=== PATIENT | male | born 1995 | race African-American/Black ===

== ENCOUNTER 2018-08-11 17:54 | Emergency (ER) | payer OTHER ==
[~2018-08-11] VITALS: Ht 182.9 cm; Wt 68.2 kg
[2018-08-11] MEDS ORDERED: NS 1,000 ML IV ONE (18:30)
[2018-08-11] MEDS ORDERED: KETOROLAC 30 MG/ML VIAL (J1885) IV ONE (18:30)
[2018-08-11] MEDS ORDERED: IPRATROPIUM 0.5MG/ALBUTEROL 2.5MG INH SOL UD 3ML (DUONEB)(J7620) NEB PRN (18:30)
[2018-08-11 19:01] LABS: INFLUENZA A AMPLIFICATION NEGATIVE (NEGATIVE); INFLUENZA B AMPLIFICATION NEGATIVE (NEGATIVE)
--- NOTE | 2018-08-11 19:05 | REP ---
Chest x-ray: Two views. History: Shortness of breath. Chest pain. . Comparison study: No comparison study . Findings: The lungs are well inflated and free of infiltrate. The pleural angles are sharp. The heart size is normal. Pulmonary vasculature is not increased. No significant bony abnormality is seen. Impression: Negative chest x-ray. Electronically Signed by Harvey Small MD 08/11/2018 06:57 P
[2018-08-11 19:14] LABS: BASO % 0.4 % (0.0-1.0); EOS # 0.4 10^3/uL (0.0-0.50); EOS % 4.3 % (0.0-3.0); HEMATOCRIT 48.5 % (42.0-52.0); HEMOGLOBIN 16.5 g/dl (13.5-17.5); LYMPH # 2.6 10^3/uL (1.5-6.5); LYMPH % 29.1 % (24.0-44.0); MEAN CORPUSCULAR HEMOGLOBIN 29.4 pg (27.0-33.0); MEAN CORPUSCULAR VOLUME 86.3 fl (80.0-96.0); MONO # 0.7 10^3/uL (0.0-0.8); MONO % 7.5 % (0.0-5.0); NEUTROPHILS # 5.2 10^3/uL (1.8-7.7); NEUTROPHILS % 58.4 % (36.0-66.0); PLATELET COUNT, AUTOMATED 236 10^3/uL (150-450); RED BLOOD COUNT 5.62 10^6/uL (4.30-6.10)
[2018-08-11 19:51] LABS: BLOOD UREA NITROGEN 9 MG/DL (7-18); CALCIUM LEVEL 5.8 MG/DL (8.5-10.1); CARBON DIOXIDE LEVEL 20 MEQ/L (21-32); CHLORIDE LEVEL 119 MEQ/L (98-107); CREATININE FOR GFR 0.57 MG/DL (0.70-1.30); GLOMERULAR FILTRATION RATE > 60.0 (>60); GLUCOSE, FASTING 66 MG/DL (70-100); SODIUM LEVEL 146 MEQ/L (136-145)
[2018-08-11 20:12] LABS: IONIZED CALCIUM 4.7 MG/DL (4.5-5.3)
[2018-08-11 20:42] LABS: BLOOD UREA NITROGEN 13 MG/DL (7-18); CALCIUM LEVEL 8.7 MG/DL (8.5-10.1); CARBON DIOXIDE LEVEL 26 MEQ/L (21-32); CHLORIDE LEVEL 106 MEQ/L (98-107); CREATININE FOR GFR 1.02 MG/DL (0.70-1.30); GLOMERULAR FILTRATION RATE > 60.0 (>60); GLUCOSE, FASTING 92 MG/DL (70-100); POTASSIUM SERUM 4.2 MEQ/L (3.5-5.1); SODIUM LEVEL 140 MEQ/L (136-145)
[2018-08-11] MEDS ORDERED: PROAAER10 INH (20:59)
[2018-08-11] MEDS ORDERED: PSEU1TAB3 PO (20:59)
[2018-08-11] MEDS ORDERED: ALBUTEROL 90 MCG/ACT 8GM HFA INHALER INH ONE (21:00)
[2018-08-11 21:29] VITALS: BP 110/58
== END 2018-08-11 21:31 | disposition home or self-care (01) ==
LOC: M ED 17:54
DX: J06.9 Acute upper respiratory infection, unspecified (principal); B34.9 Viral infection, unspecified; Z82.5 Family history of asthma and other chronic lower respiratory diseases
CPT/HCPCS: 71046; 80048; 82330; 83970; 84443; 85025; 85379; 87631; 87880; 94640; 96374; 99284; J1885

== ENCOUNTER 2019-03-10 21:18 | Inpatient (IN) | payer OTHER ==
[~2019-03-10] VITALS: Ht 182.9 cm; Wt 62.8 kg
[~2019-03-10 21:18] MED LIST: PROAAER10 INH; PSEU1TAB3 PO
[2019-03-10 22:08] LABS: HEMATOCRIT 42.8 % (42.0-52.0); HEMOGLOBIN 14.7 g/dl (13.5-17.5); MEAN CORPUSCULAR HEMOGLOBIN 28.9 pg (27.0-33.0); MEAN CORPUSCULAR HGB CONC 34.3 g/dl (32.0-36.5); MEAN CORPUSCULAR VOLUME 84.1 fl (80.0-96.0); PLATELET COUNT, AUTOMATED 200 10^3/uL (150-450); RED BLOOD COUNT 5.09 10^6/uL (4.30-6.10); WHITE BLOOD COUNT 7.7 10^3/uL (4.0-10.0)
[2019-03-10 22:42] LABS: ACETAMINOPHEN LEVEL 18.4 UG/ML (10.0-30.0); ALBUMIN 4.3 GM/DL (3.2-5.2); ALT/SGPT 24 U/L (12-78); BILIRUBIN,DIRECT 0.1 MG/DL (0.0-0.2); BILIRUBIN,TOTAL 0.3 MG/DL (0.2-1.0); BLOOD UREA NITROGEN 6 MG/DL (7-18); CALCIUM LEVEL 9.2 MG/DL (8.5-10.1); CARBON DIOXIDE LEVEL 28 MEQ/L (21-32); CHLORIDE LEVEL 108 MEQ/L (98-107); CREATININE FOR GFR 1.01 MG/DL (0.70-1.30); ETHYL ALCOHOL (ETHANOL) 0.004 % (0.000-0.010); GLOMERULAR FILTRATION RATE > 60.0 (>60); GLUCOSE, FASTING 101 MG/DL (70-100); SALICYLATE LEVEL < 1.7 MG/DL (5.0-30.0); SODIUM LEVEL 142 MEQ/L (136-145); TOTAL PROTEIN 7.9 GM/DL (6.4-8.2)
[2019-03-11 00:05] LABS: AMPHETAMINES LEVEL URINE NEGATIVE (NEGATIVE); BARBITURATES URINE NEGATIVE (NEGATIVE); BENZODIAZEPINES URINE NEGATIVE (NEGATIVE); CANNABINOIDS URINE NEGATIVE (NEGATIVE); COCAINE METABOLITE URINE NEGATIVE (NEGATIVE); METHADONE URINE NEGATIVE (NEGATIVE); OPIATES URINE NEGATIVE (NEGATIVE); PHENCYCLIDINE URINE NEGATIVE (NEGATIVE)
--- NOTE | 2019-03-11 01:55 | ECGEPIP ---
[facility] - ED Test Date: 2019-03-10 Pat Name: THANH RASMUSSEN Department: Room: - Gender: Male Replacer: PETTY : 1995 Requested By: Magdy Van Order Number: [id number] Reading MD: Magdy Win Measurements Intervals Gable Rate: 57 P: 73 LA: 148 QRS: 87 QRSD: 93 T: 70 QT: 444 QTc: 435 Interpretive Statements SINUS BRADYCARDIA POSSIBLE LEFT ATRIAL ENLARGEMENT BENIGN EARLY REPOLARIZATION NO PRIORS FOR COMPARISON Electronically Signed on 03-11-2019 1:54:39 EDT by Magdy Win
[2019-03-11] MEDS ORDERED: LORazepam 1 MG TAB PO PRN (12:30)
[2019-03-11] MEDS ORDERED: ACETAMINOPHEN TAB 650MG DOSE (2X325MG) PO PRN (12:30)
[2019-03-11] MEDS ORDERED: MAALOX 30 ML SUSP *UDC PO PRN (12:30)
[2019-03-11] MEDS ORDERED: traZODone 50 MG TAB PO PRN (12:30)
[2019-03-11 13:48] VITALS: BP 114/62
[2019-03-11 18:00] VITALS: BP 120/58
[2019-03-12 06:52] VITALS: BP 113/60
--- NOTE | 2019-03-12 11:54 | MHHPEPDOC ---
General Date Of Admission: Mar 11, 2019 Legal Status: 9.39 Chief Complaint "I didn't try to kill myself." History of Present Illness HISTORY OF THE PRESENT ILLNESS: Patient is a 24 -year-old , AD, male, with no previous psych history who brought to [facility] ED by his Monserrat after another member of pt's platoon showed pt's Monserrat text messages to multiple people stating he was going to harm himself after the pt had been drinking several mixed drinks and 1/2 a bottle of DayQuil that he denied was a SA just did b/c he had been feeling depressed due to stressors "back home" that he refused to elaborate on in the ED. Pt continued to deny in the ED that he tried to harm himself. Psychiatric Review of Systems Depression (2 or more weeks): depressed mood Ellen (4 or more days of): denies Psychosis: denies Anxiety: situational anxiety, stressor related anxiety Anxiety/ 6 months or more of: restlessness, keyed up, difficulty concentrating, irritability Past Psychiatric History Previous Psychiatric Diagnosis: denies Previous Psychiatric Admissions: denies. Suicide Attempts: denies Psychiatric Follow-up: denies Psychiatric medications: denies Past Medical History Medical Problems denies Head Injury: No Seizures: No Hospitalizations: No Surgeries: No Family Medical/Psychiatric HX Medical Problems noncontributory Psychiatric Disorders: No Addiction: No Suicide Attemps/Completions: No Addiction History alcohol Social History Childhood: Born in [place], [place] and raised in [place], [place]; raised by mother as parents never . Mother currently to step-father since pt was in 5th grade. Has one recently brother 26y/o and a little sister 17y/o. Good childhood. Abuse/Trauma:denies Current Living Situation: [facility] Education: high school grad Employment: [employer] 3yrs, E[employer], [employer] Social Support: family, friends Legal: denies Marital: single, never , no kids Mental Status Examination General Appearance: well groomed, appears stated age, personal clothing Build: average Demeanor: average, withdrawn Eye Contact: fair Activity: slowed Behavior: cooperative, withdrawn Speech: spontaneous, reg/rate,rhythm,volume Mood: depressed Mood "fine" Affect: constricted, appropriate, incongruent Thought Process: logical/linear, depressed, intact, other (subliminizing his grief) Thought Content (Delusions): none reported, denies SI, HI, AVH Thought Content (Other): none reported, appropriate, coherent Thought Content (Aggressive): none reported Perception (Hallucinations): none reported Perception (Other): none reported Cognition (Impairment of): none reported Cognition(Intelligence Est.): average Oriented: Awake, Alert, Oriented times three Insight: fair Judgment: Fair Psychosis: Denies Diagnoses Adjustment d/o with depressed mood complicated bereavement A-FIB/CHADSVASC A-FIB History Current/History of A-Fib/PAF?: No Current PO Anticoag Therapy: No Treatment Treatment ordered: NONE Reason Anticoagulant not given: Not indicated/[id number] Assessment Pt seen and states he drank cough medicine to fall asleep due to stressors back home, brother recently last week at 26y/o and he's been arguing with his parents about not being home to support his little sister. Denies he was trying to kill himself just was dealing with a lot on his mind and wanted to fall asleep. Denies that he feels he needs to start a medication for depression and I agree as pt most likely going thru complicated bereavement due to recent passing of his brother's yet he appears to try to be putting his grief into submission rather than dealing with it. Advised to attend all groups to learn coping mechanisms to aid grief process since not start on a medication. Denies SI/HI, hallucinations, delusions. Feels safe here. Initial Treatment Plan 1. Patient was admitted on a 9.39 status. 2. Complete history was obtained. 3. With patients permission, family will be contacted and database will be expanded. 4. Patients medication regimen will be reviewed and changed accordingly. 5. Patient will be provided with protected environment. 6. Patient will be treated with individual, group, and milieu therapies. 7. Patient will receive supportive psych-education. 8. Discharge planning will commence immediately. 9. Outpatient follow-up treatment will be strongly recommended. 10. The initial treatment plan will focus initially on: * Depression. * Risk for suicide. * Substance abuse. 11. monitor safety ESTIMATED LENGTH OF STAY: 5-7 DAYS. TIME SPENT COUNSELING AND COORDINATING INITIAL CARE: 60 minutes. Vital Signs Vital Signs Date Time Temp Pulse Resp B/P (MAP) Pulse Ox O2 Delivery O2 Flow Rate FiO2 8/22/19 09:33 Room Air 03/12/19 06:52 97.9 49 12 113/60 (77) 03/11/19 13:48 98 Medications No Active Prescriptions or Reported Meds Allergies Coded Allergies: No Known Allergies (Unverified , 03/11/19) SKYLER ALBERTO DO Mar 12, 2019 11:54 am
--- NOTE | 2019-03-12 14:59 | HPEPDOC ---
General Date of Admission Mar 11, 2019 at 12:28 Date of Service: Mar 12, 2019 Chief Complaint The patient is a 24-year-old male admitted with a reason for visit of Depressive Disorder Unspecified. History of Present Illness 24-year-old male with no significant past medical history presented to the ER with a chief complaint of suicidal ideations. 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 He denies any acute complaints of fevers, chills, chest pain, palpitations, abdominal pain, or any nausea/vomiting/diarrhea. Home Medications No Active Prescriptions or Reported Meds Allergies Coded Allergies: No Known Allergies (Unverified , 03/11/19) Past Medical History Medical History None Surgical History None Social History * Smoker: Denies Alcohol: Denies Drugs: denies Review of Systems Other systems 10 point review of systems negative unless otherwise specified in HPI. Physical Examination General Exam: Positive: Alert, Cooperative, No Acute Distress ENT Exam: Positive: Atraumatic, Mucous membr. moist/pink Neck Exam: Negative: JVD Chest Exam: Positive: Clear to auscultation, Normal air movement Heart Exam: Positive: Rate Normal, Normal S1, Normal S2 Abdomen Exam: Positive: Soft; Negative: Tenderness Extremity Exam: Negative: Tenderness, Swelling Psych Exam: Positive: Oriented x 3 Vital Signs Vital Signs Date Time Temp Pulse Resp B/P (MAP) Pulse Ox O2 Delivery O2 Flow Rate FiO2 03/12/19 09:33 Room Air 03/12/19 06:52 97.9 49 12 113/60 (77) 03/11/19 13:48 98 Plan / VTE VTE Prophylaxis Ordered?: No Plan Plan Suicidal ideations Psychiatric stabilization as per psychiatry KO PANIAGUA MD Mar 12, 2019 14:59
[2019-03-12 18:00] VITALS: BP 129/66
[2019-03-13 06:43] VITALS: BP 113/65
--- NOTE | 2019-03-13 09:49 | MHIPNPDOC ---
[facility] Progress Note Progress Note DATE OF SERVICE: 03/13/19 HISTORY: Patient is a 24 -year-old , AD, male, with no previous psych history who brought to [facility] ED by his Monserrat after another member of pt's pl atoon showed pt's Monserrat text messages to multiple people stating he was going to harm himself after the pt had been drinking several mixed drinks and 1/2 a bottle of DayQuil that he denied was a SA just did b/c he had been feeling depressed due to stressors "back home" that he refused to elaborate on in the ED. Pt continued to deny in the ED that he tried to harm himself. VITAL SIGNS: See below. NEW TEST RESULTS: See below. CURRENT MEDICATIONS: See below. MENTAL STATUS EXAMINATION: General Appearance: well groomed, appears stated age, personal clothing Build: average Demeanor: average, withdrawn Eye Contact: fair Activity: slowed Behavior: cooperative, withdrawn Speech: spontaneous, reg/rate,rhythm,volume Mood: depressed Mood "fine" Affect: constricted, appropriate, incongruent Thought Process: logical/linear, depressed, intact, other (subliminizing his grief) Thought Content (Delusions): none reported, denies SI, HI, AVH Thought Content (Other): none reported, appropriate, coherent Thought Content (Aggressive): none reported Perception (Hallucinations): none reported Perception (Other): none reported Cognition (Impairment of): none reported Cognition(Intelligence Est.): average Oriented: Awake, Alert, Oriented times three Insight: fair Judgment: Fair Psychosis: Denies DIAGNOSES: Adjustment d/o with depressed mood complicated bereavement ASSESSMENT:Patient is a 24 -year-old , AD, male, with no previous psych history who brought to [facility] ED by his Monserrat after another member of pt's platoon showed pt's Monserrat text messages to multiple people stating he was going to harm himself after the pt had been drinking several mixed drinks and 1/2 a bottle of DayQuil that he denied was a SA just did b/c he had been feeling depressed due to stressors "back home" that he refused to elaborate on in the ED. Pt continued to deny in the ED that he tried to harm himself. MANAGEMENT PLAN: Continue plan. trazodone 50mg qhs prn insomnia TIME SPENT: 30 minutes. Vital Signs Vital Signs Date Time Temp Pulse Resp B/P (MAP) Pulse Ox O2 Delivery O2 Flow Rate FiO2 03/13/19 06:43 98.7 60 16 113/65 (81) 03/12/19 09:33 Room Air 03/11/19 13:48 98 Current Medications Current Medications Medications (Trade) Dose Ordered Sig/Rosalba Route PRN Reason Start Time Stop Time Status Last Admin Dose Admin Acetaminophen (Tylenol Tab) 650 mg Q6HP PRN PO HEADACHE or DISCOMFORT 03/11/19 12:30 Al Hydrox/Mg Hydrox/Simethicone (Mylanta) 30 ml Q4HP PRN PO HEARTBURN/INDIGESTION 03/11/19 12:30 Home Med (Med Rec Complete!) ASDIRECTED XX 03/11/19 09:00 03/11/19 09:00 DC Lorazepam (Ativan) 1 mg Q6HP PRN PO ANXIETY/AGITATION 03/11/19 12:30 Trazodone HCl (Desyrel) 50 mg QHSP PRN PO INSOMNIA 03/11/19 12:30 Allergies Coded Allergies: No Known Allergies (Unverified , 03/11/19) SKYLER ALBERTO DO Mar 13, 2019 9:49 am
--- NOTE | 2019-03-13 10:35 | MHIPNPDOC ---
[facility] Progress Note Progress Note DATE OF SERVICE: 03/13/19 HISTORY: Patient is a 24 -year-old , AD, male, with no previous psych history who brought to [facility] ED by his Monserrat after another member of pt's pl amador showed pt's Monserrat text messages to multiple people stating he was going to harm himself after the pt had been drinking several mixed drinks and 1/2 a bottle of DayQuil that he denied was a SA just did b/c he had been feeling depressed due to stressors "back home" that he refused to elaborate on in the ED. Pt continued to deny in the ED that he tried to harm himself. VITAL SIGNS: See below. NEW TEST RESULTS: See below. CURRENT MEDICATIONS: See below. MENTAL STATUS EXAMINATION: General Appearance: well groomed, appears stated age, personal clothing Build: average Demeanor: average Eye Contact: fair Activity: average Behavior: cooperative Speech: spontaneous, reg/rate,rhythm,volume Mood: less depressed Mood "better" Affect: less constricted, appropriate, congruent Thought Process: logical/linear, less depressed, intact, other (sublimating his grief) Thought Content (Delusions): none reported, denies SI, HI, AVH Thought Content (Other): none reported, appropriate, coherent Thought Content (Aggressive): none reported Perception (Hallucinations): none reported Perception (Other): none reported Cognition (Impairment of): none reported Cognition(Intelligence Est.): average Oriented: Awake, Alert, Oriented times three Insight: fair Judgment: Fair Psychosis: Denies DIAGNOSES: Adjustment d/o with depressed mood complicated bereavement ASSESSMENT:Pt seen and states he feels "better" today and has been attending all the groups, learning coping mechanisms, and finding beneficial. Per Treatment team, pt did not want his Monserrat to know his brother had last week even when the pt had requested leave that was denied b/c Monserrat didn't know of family me mbers which is an automatic leave. Now that Monserrat aware pt will be granted leave once d/c from [facility]. Continues to sublimate his grief and feelings related to brother's . He is socializing with his peers on the unit. Denies SI/HI, hallucinations, delusions. Feels safe here. MANAGEMENT PLAN: Continue plan. trazodone 50mg qhs prn insomnia TIME SPENT: 30 minutes. Vital Signs Vital Signs Date Time Temp Pulse Resp B/P (MAP) Pulse Ox O2 Delivery O2 Flow Rate FiO2 03/13/19 10:10 Room Air 03/13/19 06:43 98.7 60 16 113/65 (81) 03/11/19 13:48 98 Current Medications Current Medications Medications (Trade) Dose Ordered Sig/Rosalba Route PRN Reason Start Time Stop Time Status Last Admin Dose Admin Acetaminophen (Tylenol Tab) 650 mg Q6HP PRN PO HEADACHE or DISCOMFORT 03/11/19 12:30 Al Hydrox/Mg Hydrox/Simethicone (Mylanta) 30 ml Q4HP PRN PO HEARTBURN/INDIGESTION 03/11/19 12:30 Home Med (Med Rec Complete!) ASDIRECTED XX 03/11/19 09:00 03/11/19 09:00 DC Lorazepam (Ativan) 1 mg Q6HP PRN PO ANXIETY/AGITATION 03/11/19 12:30 Trazodone HCl (Desyrel) 50 mg QHSP PRN PO INSOMNIA 03/11/19 12:30 Allergies Coded Allergies: No Known Allergies (Unverified , 03/11/19) SKYLER ALBERTO DO Mar 13, 2019 10:35 am
[2019-03-13 18:35] VITALS: BP 129/59
[2019-03-14 06:45] VITALS: BP 140/87
--- NOTE | 2019-03-14 15:14 | MHIPNPDOC ---
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 He has done well on the unit with very little to no medication interventions, appearing to suggest an adjustment disorder. Interval History Patient is met with today. He has no complaints. Reports he is sleeping well. He's on no current medications. He has been interacting well. Staff report no problems. He has been attending groups and no behavioral issues overnight. He reports he is looking forward to potential discharge on Saturday. Review Of Systems Denies any hopelessness, depressed mood, suicidal thoughts, concentration proble ms, or insomnia. Psychotherapy None on this visit. Vital Signs Reviewed. Mental Status Examination General: Well dressed with good hygiene Speech: Spontaneous and fluid Thought processes: Linear and logical MSK: Smooth and coordinated gait, no signs of tremors or involuntary orofacial movements Thought content: Future orientated Abstract reasoning, and computation: Intact Description of associations: Intact Description of abnormal or psychotic thoughts: Denies any suicidal or homicidal ideation. Denies any auditory or visual hallucinations. Does not appear to be responding to internal stimuli. Does not appear to be endorsing any bizarre or paranoid ideation. Judgment: fair Insight: fair Orientation: Alert and orientated 3 Cognition: Grossly normal Recent and remote memory: Intact Attention span and concentration: Intact Fund of knowledge: Adequate Mood: "okay" Affect: Euthymic with a full range Diagnoses Adjustment disorder with disruption of mood and conduct. Assessment and Plan Patient appears to be making good progress without any medication adjustments, suggesting an adjustment disorder versus a clinical depression. 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 Time Spent 15 minutes with greater than 50% of time spent on counseling/coordination of care. Saturday Vital Signs Vital Signs Date Time Temp Pulse Resp B/P (MAP) Pulse Ox O2 Delivery O2 Flow Rate FiO2 03/14/19 06:45 99.0 81 15 140/87 (104) 03/13/19 10:10 Room Air 03/11/19 13:48 98 Current Medications Current Medications Medications (Trade) Dose Ordered Sig/Rosalba Route PRN Reason Start Time Stop Time Status Last Admin Dose Admin Acetaminophen (Tylenol Tab) 650 mg Q6HP PRN PO HEADACHE or DISCOMFORT 03/11/19 12:30 Al Hydrox/Mg Hydrox/Simethicone (Mylanta) 30 ml Q4HP PRN PO HEARTBURN/INDIGESTION 03/11/19 12:30 Home Med (Med Rec Complete!) ASDIRECTED XX 03/11/19 09:00 03/11/19 09:00 DC Lorazepam (Ativan) 1 mg Q6HP PRN PO ANXIETY/AGITATION 03/11/19 12:30 Trazodone HCl (Desyrel) 50 mg QHSP PRN PO INSOMNIA 03/11/19 12:30 Allergies Coded Allergies: No Known Allergies (Unverified , 03/11/19) JANNA RENNER DO Mar 14, 2019 15:14
[2019-03-14 18:00] VITALS: BP 106/61
[2019-03-15 06:52] VITALS: BP 109/59
[2019-03-15 18:00] VITALS: BP 111/59
[2019-03-16 06:55] VITALS: BP 108/57
--- NOTE | 2019-03-16 09:37 | MHDSPDOC ---
[facility] Discharge Summary Discharge Summary DATE OF ADMISSION: Mar 11, 2019 at 12:28 pm DATE OF DISCHARGE: Mar 16, 2019 DISCHARGE DIAGNOSES: Adjustment d/o with depressed mood complicated bereavement REASON FOR ADMISSION: Patient is a 24 -year-old , AD, male, with no previous psych history who brought to [facility] ED by his Monserrat after another member of pt's platoon showed pt's Monserrat text messages to multiple people stating he was going to harm himself after the pt had been drinking several mixed drinks and 1/2 a bottle of DayQuil that he denied was a SA just did b/c he had been feeling depressed due to stressors "back home" that he refused to elaborate on in the ED. Pt continued to deny in the ED that he tried to harm himself. CONSULTANTS INVOLVED: none TREATMENT AND PROGRESS ON THE UNIT : Pt was admitted to [facility], seen for psychi atric assessment and monitored for safety. He was started started on any [facility] medications as he declined starting any preferring to trying outpatient therapy as treatment first. He was provided trazodone 50mg qhs prn insomnia. He attended groups daily during his stay that he found helpful. His symptoms improved with treatment. On day of discharge he denied depression, anxiety, insomnia, SI/HI, hallucinations, delusions. He was discharged home after Monserrat meeting with follow-up at [facility]. He felt safe for discharge. DISCHARGE ASSESSMENT: Pt seen and states he feels "good" today and is looking forward to being discharged home today. He has been attending all the groups, learning coping mechanisms, and finding beneficial. Per Treatment team last week, pt did not want his Monserrat to know his brother had last week even when the pt had requested leave that was denied b/c Monserrat didn't know of family members which is an automatic leave. Now that Monserrat aware pt will be granted leave once d/c from [facility]. He is socializing with his peers on the unit. Denies depression, anxiety, insomnia, SI/HI, hallucinations, delusions. Feels safe to be discharged home with his Monserrat. MENTAL STATUS EXAMINATION ON DISCHARGE: General Appearance: well groomed, appears stated age, personal clothing Build: average Demeanor: average Eye Contact: good Activity: average Behavior: cooperative Speech: spontaneous, reg/rate,rhythm,volume Mood: euthymic, full range Mood "good" Affect: euthymic, appropriate, congruent Thought Process: logical/linear, intact Thought Content (Delusions): none reported, denies SI, HI, AVH Thought Content (Other): none reported, appropriate, coherent Thought Content (Aggressive): none reported Perception (Hallucinations): none reported Perception (Other): none reported Cognition (Impairment of): none reported Cognition(Intelligence Est.): average Oriented: Awake, Alert, Oriented times three Insight: good Judgment: good Psychosis: Denies MEDICATIONS ON DISCHARGE: none PLAN/FOLLOWUP ARRANGEMENTS: D/c home with [facility] with follow-up at [facility]. The amount of time spent in the coordination of care for this patient was approximately 30 minutes. Vital Signs/I&Os Vital Signs Date Time Temp Pulse Resp B/P (MAP) Pulse Ox O2 Delivery O2 Flow Rate FiO2 03/16/19 06:55 97.7 56 12 108/57 (74) 03/13/19 10:10 Room Air 03/11/19 13:48 98 Medications No Active Prescriptions or Reported Meds Allergies Coded Allergies: No Known Allergies (Unverified , 03/11/19) SKYLER ALBERTO DO Mar 16, 2019 9:37 am
== END 2019-03-16 13:00 | disposition home or self-care (01) | DRG 881 ==
LOC: M ED 21:18 → M ED INP 03-11 12:28 → M PSY 03-11 13:15
PROVIDERS: ADMIT Psychiatry & Neurology Psychiatry; ATTEND Psychiatry & Neurology Psychiatry
DX: F43.21 Adjustment disorder with depressed mood (principal); R45.851 Suicidal ideations; Z63.4 Disappearance and death of family member